=== PATIENT | male | born 1945 | race Hispanic/Latino ===

== ENCOUNTER 2017-12-25 06:05 | Observation (INO) | payer MEDICARE ==
--- NOTE | 2017-12-22 12:25 | Diagnostic Imaging Report ---
EXAMINATION: PA and lateral views of the chest. COMPARISON: None CLINICAL HISTORY: Preoperative study for right knee surgery DISCUSSION: The lungs are well-inflated. No focal airspace consolidation, pleural effusion, or pneumothorax. Tortuous thoracic aorta with otherwise normal cardiomediastinal contour. No overt pulmonary edema. No acute osseous abnormality. IMPRESSION: No acute cardiopulmonary abnormality. Signed by: Dr. Lonnie Hernandez M.D. on 12/22/2017 12:22 PM
[2017-12-22 12:28] LABS: BASOPHILS % 0.7 % (0.0-1.0); EOSINOPHILS # (AUTO) 0.5 (0.0-0.4); EOSINOPHILS % 7.9 % (0.0-6.0); HEMATOCRIT 43.2 % (38.2-49.6); HEMOGLOBIN 13.6 g/dL (14.0-18.0); LYMPHOCYTES # (AUTO) 1.5 (1.0-3.2); LYMPHOCYTES % 25.6 % (18.0-39.1); MEAN CORPUSCULAR HEMOGLOBIN 28.2 pg (28-32); MEAN CORPUSCULAR HGB CONC 31.5 g/dL (31-35); MEAN CORPUSCULAR VOLUME 89.4 fL (81-99); MONOCYTES # (AUTO) 0.4 (0.2-0.8); MONOCYTES % 7.4 % (4.4-11.3); NEUTROPHILS # (AUTO) 3.4 (2.1-6.9); NEUTROPHILS % 58.1 % (38.7-80.0); PLATELET COUNT 158 x10e3/uL (140-360); RED BLOOD COUNT 4.83 x10e6/uL (4.3-5.7); RED CELL DISTRIBUTION WIDTH 13.9 % (11.7-14.4)
[~2017-12-25] VITALS: Ht 170.2 cm; Wt 81.9 kg
[~2017-12-25 06:05] MED LIST: ATORVASTATIN CA20 MG PO; MELOXICAM7.5 MG PO; ROPIVACAINE 246.25 MG, EPINEPHRINE HCL 1:1000 0.5 MG, CLONIDINE HCL 0.08 MG, KETOROLAC ... IV ONE; ULTRAM50 MG PO
--- OUTSIDE RECORDS SUMMARY | 2017-12-25 06:07 | XMS REPORT ---
Author Author [facility] Address Unknown Phone Unavailable Care Team Providers Care Sewer Pipe Sorter Name Role Phone LONNIE ONEAL Unavailable Unavailable Problems This patient has no known problems. Allergies, Adverse Reactions, Alerts This patient has no known allergies or adverse reactions. Medications This patient has no known medications. Results Test Description Test Time Test Comments Text Results Atomic Results Result Comments CHEST 2 VIEWS 2017-12-22 12:19:00 [place] [address] Patient Name: ALFREDO WALTER MR #: [id number] : 1945 Age/Sex: 72/M Req #: [id number] Adm Physician: Ordered by: LONNIE ONEAL MD Report #: [id number] Location: OR Room/Bed: Procedure: [id number] DX/CHEST 2 VIEWS Exam Date: 12/22/17 Exam Time: 1201 REPORT STATUS: Signed EXAMINATION: PA and lateral views of the chest. COMPARISON: None CLINICAL HISTORY: Preoperative study for right knee surgery DISCUSSION: The lungs are well-inflated. No focal airspace consolidation, pleural effusion, or pneumothorax. Tortuous thoracic aorta with otherwise normal cardiomediastinal contour. No overt pulmonary edema. No acute osseous abnormality. IMPRESSION: No acute cardiopulmonary abnormality. Signed by: Dr. Lonnie Brothers M.D. on 12/22/2017 12:22 PM Dictated By: LONNIE BROTHERS MD 21 Transcribed By: PHIL on 12/22/171221 COPY TO: LONNIE ONEAL MD
[2017-12-25] MEDS ORDERED: GABAPENTIN 300 MG CAP ONE (06:40)
[2017-12-25] MEDS ORDERED: CELECOXIB 200 MG CAP ONE (06:40)
[2017-12-25] MEDS ORDERED: DEXAMETHASONE SOD PHOS 10 MG/1 ML VIAL ONE (06:40)
[2017-12-25] MEDS ORDERED: CEFAZOLIN SOD 2 GM/D5W 50ML 50 ML IV ONE (06:41)
[2017-12-25] MEDS ORDERED: TRANEXAMIC ACID 1,000 MG/10 ML ML ONE (07:36)
[2017-12-25] MEDS ORDERED: BACITRACIN 50,000 UNIT VIAL ONE (07:36)
[2017-12-25] MEDS ORDERED: MUPIROCIN 2% OINT 22 GM TUBE ONE (07:36)
[2017-12-25] MEDS: SODIUM CHLORIDE 0.9% 1000ML 1,000 ML IV SCH ×2 (09:58→22:00)
[2017-12-25] MEDS ORDERED: KETOROLAC TROMETHAMINE 30 MG/ML VIAL IV PRN (10:00)
[2017-12-25] MEDS ORDERED: HYDROCODONE/APAP 5MG-325MG TAB PO PRN (10:00)
[2017-12-25] MEDS ORDERED: DIPHENHYDRAMINE HCL INJ 50 MG/ML VIAL IM/IV PRN (10:00)
[2017-12-25] MEDS ORDERED: PROMETHAZINE HCL (IM) 25 MG/ML VIAL IM PRN (10:00)
[2017-12-25] MEDS ORDERED: DOCUSATE SODIUM 100 MG CAP PO PRN (10:00)
[2017-12-25] MEDS ORDERED: ACETAMINOPHEN 650 MG SUPP PR PRN (10:00)
[2017-12-25] MEDS ORDERED: ONDANSETRON HCL INJ 2 MG/ML VIAL IV PRN (10:00)
[2017-12-25] MEDS ORDERED: HYDROCODONE/APAP 7.5MG-325MG 1 EA TAB PO PRN (10:00)
--- NOTE | 2017-12-25 11:17 | Diagnostic Imaging Report ---
PROCEDURE: X-RAY RIGHT KNEE, ONE OR TWO VIEWS COMPARISON: None. INDICATIONS:POST RIGHT KNEE SURGERY FINDINGS: See conclusion. CONCLUSION: Status post total right knee replacement with surrounding soft tissue swelling, air and ashlyn consistent with recent surgery. No acute fractures. Obdulio Jules D.O. Dictated by: Obdulio Jules D.O. on 12/25/2017 at 11:26 Electronically approved by: Obdulio Jules D.O. on 12/25/2017 at 11:26
[2017-12-25] MEDS: ACETAMINOPHEN 1000 MG/100 ML IV SCH ×2 (12:00→18:45)
[2017-12-25] MEDS ORDERED: CEFAZOLIN SOD 1 GM/D5W 50ML 50 ML IV SCH (14:00)
--- NOTE | 2017-12-25 15:52 | Operative Report ---
DATE OF PROCEDURE: December 25, 2017 COMMISSIONER OF OFFICIALS: Melvin Tidwell PA-C The patient was brought to the operating room for induction of anesthesia. Throughout this case, my PA's assistance was necessary for retraction of soft tissue and positioning of the extremity. This allows for efficient and technically successful execution of the operation and is considered medically necessary. PREOPERATIVE DIAGNOSIS: Osteoarthritis, right knee. POSTOPERATIVE DIAGNOSIS: Osteoarthritis, right knee. PROCEDURE: Right total knee arthroplasty. INDICATIONS: The patient is a 72-year-old gentleman who has severe end-stage arthritis of his right knee. He has failed conservative management and would like to proceed with a right total knee replacement. The risks and benefits of the procedure have been discussed. He states he understands and wishes to proceed. DESCRIPTION OF PROCEDURE: The patient was brought to the operating room and placed under general anesthetic. He received prophylactic antibiotics, a regional block, and tranexamic acid in the holding area. His right lower extremity was prepped and draped in a sterile manner. A preoperative timeout was performed. Extremity was exsanguinated and a proximal tourniquet was inflated to 300 mmHg. An anterior approach with a medial parapatellar arthrotomy was performed. Clear synovial fluid was removed from the joint. Aggressive medial soft tissue release was necessary due to the varus deformity. Meniscal remnants and marginal osteophytes were removed. The cruciate ligaments were sacrificed. The knee was very tight and had a near 5 degree flexion contracture prior to surgery. An extramedullary cutting guide was used to resect the proximal tibia. A +2 mm cut was performed due to the limited motion. The tibial baseplate was noted to be a size 7. The central fin punch was impacted. Throughout the case, a Felix and Nephew posterior stabilized Legion system was used. Attention was then directed towards the distal femur. An intramedullary cutting guide was used to resect the distal femur in 6 degrees of valgus and rotation referencing off of a combination of landmarks including [place] line, the epicondylar axis and posterior condyles. The femoral component was noted to be a size number 8. Anterior and posterior cuts were made. The notch cut was made. Trial reductions were performed. An 11 mm posterior stabilized tibial insert provided appropriate soft tissue balancing in flexion and extension. The patella was resurfaced with a 35 mm x 7.5 mm patellar button. The thickness was checked before and after and was right at 24 mm. Patellar tracking was noted to be concentric. The trial implants were then all removed. A 100 mL premixed pericapsular injection was placed around the surrounding soft tissue. The knee was thoroughly irrigated with a shower-tip pulsatile lavage. The components were cemented into place using Palacos cement pre-loaded with antibiotics. Care was taken to remove all extravasated cement. The wound was further irrigated while the cement cured. The arthrotomy was closed with interrupted number 1 Ethibond. The skin was closed with subcuticular Vicryl and ashlyn. A sterile bandage was applied. The patient was extubated and transported to the recovery room in stable condition. Blood loss was minimal. All needle and sponge counts were correct. Job#: [id number]
[2017-12-25] MEDS: CEFAZOLIN SOD 1 GM VIAL IV SCH (16:00)
[2017-12-25] MEDS ORDERED: CEFAZOLIN SOD 1 GM VIAL ONE (16:37)
[2017-12-25] MEDS ORDERED: SODIUM CHLORIDE 0.9% 50ML 50 ML ONE (16:38)
[2017-12-25] MEDS ORDERED: CELECOXIB 100 MG CAP PO SCH (17:00)
[2017-12-25] MEDS ORDERED: LIDOCAINE HCL 2% LOCAL INJ 5 ML SDV VIAL INJ ONE (17:30)
[2017-12-25] MEDS ORDERED: ONDANSETRON HCL INJ 2 MG/ML VIAL ONE (17:30)
[2017-12-25] MEDS ORDERED: SEVOFLURANE INHAL SOLN 250 ML PEN BTL ONE (17:30)
[2017-12-25] MEDS ORDERED: PROPOFOL IV EMULSION 10 MG/ML 20 ML VIAL ONE (17:30)
[2017-12-25] MEDS ORDERED: DEXAMETHASONE SOD PHOS INJ 4 MG/ML VIAL ONE (17:30)
[2017-12-25 18:15] VITALS: BP 119/59
[2017-12-25 18:16] VITALS: BP 119/59
[2017-12-25] MEDS ORDERED: ROPIVACAINE 0.5% 5 MG/ML 30 ML SDV ONE (18:24)
[2017-12-25] MEDS ORDERED: LIDOCAINE 2% /EPINEPHRINE 20 ML SDV INJ ONE (18:24)
[2017-12-25] MEDS: CELECOXIB 200 MG CAP PO SCH (18:45)
[2017-12-25] MEDS: ASPIRIN 325 MG TAB PO SCH (18:45)
[2017-12-25] MEDS ORDERED: MIDAZOLAM HCL 2 MG/2 ML VIAL ONE (18:46)
[2017-12-25 20:00] VITALS: BP_SYST 110; BP_SYST 119; BP_DIAS 59
[2017-12-25] MEDS ORDERED: ZOLPIDEM TARTRATE 5 MG TAB PO PRN (21:00)
[2017-12-26] VITALS: BP 121/57
[2017-12-26 05:52] LABS: HEMATOCRIT 33.6 % (38.2-49.6); HEMOGLOBIN 10.8 g/dL (14.0-18.0)
[2017-12-26] MEDS: ACETAMINOPHEN 1000 MG/100 ML IV SCH ×2 (06:00)
[2017-12-26 06:57] VITALS: BP 104/55
[2017-12-26] MEDS: ASPIRIN 325 MG TAB PO SCH (09:04)
[2017-12-26] MEDS: CEFAZOLIN SOD 1 GM VIAL IV SCH ×2 (09:04)
[2017-12-26] MEDS: CELECOXIB 200 MG CAP PO SCH (09:04)
[2017-12-26 09:31] VITALS: BP 112/58
[2017-12-26] MEDS ORDERED: ACETAMINOPHEN 1000 MG/100 ML IV PRN (10:00)
[2017-12-26] MEDS: SODIUM CHLORIDE 0.9% 1000ML 1,000 ML IV SCH (10:30)
[2017-12-26 12:37] VITALS: BP 111/50
--- NOTE | 2018-02-12 14:30 | Discharge Summary ---
CHIEF COMPLAINT: Right knee pain. HISTORY OF PRESENT ILLNESS: This patient is a 72-year-old male who complains of right knee pain for several years. He states the pain has gotten progressively worse over the last year. He states it is now getting difficult to walk. His x-rays show severe end-stage varus OA. The findings and options were discussed. We explained that at this point conservative management would not likely benefit him. The risks and benefits of a right total knee replacement were explained. The patient states he understands and wishes proceed. HOSPITAL COURSE: The patient underwent a right total knee replacement without complications. He was then transferred to the recovery room and the floor in stable condition. He remained stable through his hospital stay. He progressed nicely with physical therapy. He was able to be discharged home on postop day 1. PRINCIPAL DIAGNOSIS: Osteoarthritis, right knee. PRINCIPAL PROCEDURE: Right total knee arthroplasty. DISCHARGE INSTRUCTIONS: Patient was discharged home on postop day 1. He had home health and physical therapy arranged. He could weightbear as tolerated with his rolling walker. He was instructed to resume his home medications as directed. He was to take aspirin twice a day for thromboprophylaxis. He was instructed to follow up in our office in roughly 10 days. DICTATED BY RUBY BLOCK PA-C STAR ONEAL MD Job#: [id number] [place]
--- NOTE | 2018-03-03 12:10 | Consultation ---
DATE OF CONSULTATION: December 26, 2017 REASON FOR CONSULTATION: Medical management. HISTORY OF PRESENT ILLNESS: Patient is a 72-year-old status post total knee arthroplasty of the right knee who is doing well postoperatively with minimal pain. REVIEW OF SYSTEMS: Denies any chest pain, fever, chills, headaches, shortness of breath, dizziness, nausea, or vomiting. PAST MEDICAL HISTORY: Significant for hyperlipidemia. MEDICATIONS: See MAR. ALLERGIES: NONE. SOCIAL HISTORY: Nondrinker and nonsmoker. FAMILY HISTORY: Noncontributory. PHYSICAL EXAMINATION VITAL SIGNS: Temperature 96.4, pulse 54, blood pressure 121/57, and sats 94%. GENERAL: No apparent distress. LUNGS: Clear to auscultation bilaterally. NECK: Supple. CARDIOVASCULAR: Regular rate and rhythm. ABDOMEN: Good bowel sounds. Soft and nontender. EXTREMITIES: No clubbing or cyanosis. NEUROLOGIC: Nonfocal. ASSESSMENT AND PLAN 1. Right knee pain. Continue physical therapy. 2. Hyperlipidemia. We will continue with his medications at the time of discharge. 3. Anemia. We will check CBC. Please see hospital chart for full details. Job#: [id number] DARIUSZ
== END 2017-12-26 14:17 | disposition home health service (06) ==
LOC: OR 06:05 → PACU V 10:00 → MED/SURG 17:56
PROVIDERS: ADMIT Specialist; ATTEND Specialist
DX: M17.11 Unilateral primary osteoarthritis, right knee (principal); E78.00 Pure hypercholesterolemia, unspecified; E66.01 Morbid (severe) obesity due to excess calories; Z72.0 Tobacco use; D64.9 Anemia, unspecified; Z68.28 Body mass index [BMI] 28.0-28.9, adult
CPT/HCPCS: 27447; 36415 ×2; 71046; 73560; 85014; 85018; 85025; 86850; 86900; 86920; 93005; 97116 ×2; 97161; 97530; C1713; G0378 ×2; G8978; G8979; J0171; J0690 ×2; J1100 ×2; J1885 ×2; J2001 ×2; J2250; J2405; J2795; J7030 ×2

== ENCOUNTER 2019-12-24 07:30 | Observation (INO) | payer MEDICARE, OTHER ==
[2019-12-20 11:45] LABS: BASOPHILS # (AUTO) 0.1 (0.0-0.1); BASOPHILS % 0.7 % (0.0-1.0); EOSINOPHILS # (AUTO) 0.8 (0.0-0.4); EOSINOPHILS % 11.4 % (0.0-6.0); HEMATOCRIT 44.2 % (38.2-49.6); HEMOGLOBIN 13.5 g/dL (14.0-18.0); LYMPHOCYTES # (AUTO) 1.7 (1.0-3.2); LYMPHOCYTES % 25.3 % (18.0-39.1); MEAN CORPUSCULAR HEMOGLOBIN 26.7 pg (28-32); MEAN CORPUSCULAR HGB CONC 30.5 g/dL (31-35); MEAN CORPUSCULAR VOLUME 87.4 fL (81-99); MONOCYTES # (AUTO) 0.6 (0.2-0.8); NEUTROPHILS # (AUTO) 3.6 (2.1-6.9); NEUTROPHILS % 53.5 % (38.7-80.0); PLATELET COUNT 152 x10e3/uL (140-360); RED BLOOD COUNT 5.06 x10e6/uL (4.3-5.7); RED CELL DISTRIBUTION WIDTH 15.8 % (11.7-14.4)
--- NOTE | 2019-12-20 12:04 | Diagnostic Imaging Report ---
EXAMINATION: CHEST 2 VIEWS INDICATION: ^[id number] ^1140 ^PRE OP COMPARISON: 12/22/2017 FINDINGS: PA and lateral views TUBES and LINES: None. LUNGS: Lungs are well inflated. Lungs are clear. There is no evidence of pneumonia or pulmonary edema. PLEURA: No pleural effusion or pneumothorax. HEART AND MEDIASTINUM: The cardiomediastinal silhouette is at the upper limit of normal in size. The thoracic aorta is mildly tortuous. BONES AND SOFT TISSUES: No acute osseous lesion. Soft tissues are unremarkable. UPPER ABDOMEN: No free air under the diaphragm. IMPRESSION: No acute thoracic radiographic abnormality. Signed by: Carmine Wynn MD on 12/20/2019 12:01 PM
[~2019-12-24] VITALS: Ht 170.2 cm; Wt 117.5 kg
[~2019-12-24 07:30] MED LIST changes: -ROPIVACAINE 246.25 MG, EPINEPHRINE HCL 1:1000 0.5 MG, CLONIDINE HCL 0.08 MG, KETOROLAC ... IV ONE; +SODIUM CHLORIDE 0.9% 500ML 500 ML ONE; +TRANEXAMIC ACID 1,000 MG/10 ML ML ONE; +VANCOMYCIN HCL 1,000 MG ONE
[2019-12-24] MEDS ORDERED: ROPIVACAINE 246.25 MG, EPINEPHRINE HCL 1:1000 1ML 0.5 MG, CLONIDINE HCL 0.08 MG, KETORO... INJ ONE ×5 (08:00)
[2019-12-24] MEDS ORDERED: GABAPENTIN 300 MG CAP ONE (08:01)
[2019-12-24] MEDS ORDERED: CEFAZOLIN SOD 1 GM/NS 50ML 100 ML IV ONE (08:01)
[2019-12-24] MEDS ORDERED: DEXAMETHASONE SOD PHOS 10 MG/1 ML VIAL ONE (08:01)
[2019-12-24] MEDS ORDERED: CELECOXIB 200 MG CAP ONE (08:01)
[2019-12-24] MEDS ORDERED: VANCOMYCIN HCL 500 MG ONE (09:35)
[2019-12-24] MEDS ORDERED: ONDANSETRON HCL INJ 2MG/ML 2ML 2 MG/ML VIAL IV PRN (10:30)
[2019-12-24] MEDS ORDERED: DOCUSATE SODIUM 100 MG CAP PO PRN (10:30)
[2019-12-24] MEDS ORDERED: ZOLPIDEM TARTRATE 5 MG TAB PO PRN (10:30)
[2019-12-24] MEDS ORDERED: KETOROLAC TROMETHAMINE 30 MG/ML VIAL IV PRN (10:30)
[2019-12-24] MEDS ORDERED: HYDROCODONE/APAP 7.5MG-325MG 1 EA TAB PO PRN (10:30)
[2019-12-24] MEDS ORDERED: ACETAMINOPHEN 650 MG SUPP PR PRN (10:30)
[2019-12-24] MEDS ORDERED: DIPHENHYDRAMINE HCL INJ 50 MG/ML VIAL IV PRN (10:30)
--- NOTE | 2019-12-24 11:18 | Diagnostic Imaging Report ---
TECHNIQUE: 2 views of left knee HISTORY: ^post op ^[id number] ^1045 ^n. COMPARISON: None. IMPRESSION: Status post left knee orthopedic hardware placement. No evidence of loosening or failure. Postoperative soft tissue changes. Signed by: Luis Godoy MD on 12/24/2019 11:14 AM
--- OUTSIDE RECORDS SUMMARY | 2019-12-24 11:40 | XMS REPORT | Continuity of Care Document ---
Author Author [facility] t Organization [facility] Address [address] [place] [id number] Phone Unavailable Care Team Providers Care Accounts Officer Name Role Phone STAR ONEAL Attphys Unavailable MAURA MCKEON Admphys Unavailable Payers Payer Name Policy Type Policy Number Effective Date Expiration Date S ource Problems This patient has no known problems. Allergies, Adverse Reactions, Alerts Allergy Name Allergy Type Status Severity Reaction(s) Onset Date Inacti ve Date Treating Clinician Comments Source No Known Allergies DA Active U 2016-05-24 00:00:00 [facility] Medications This patient has no known medications. Procedures This patient has no known procedures. Results Test Description Test Time Test Comments Results Result Comments Source KNEE LEFT 1-2 VIEWS 2019-12-24 11:13:00 [facility] 1945 Sex: M [place] [address] Patient Name: ALFREDO WALTER MR #: [id number] : 1945 Age/Sex: 74/M Req #: [id number] [facility] Physician: Ordered by: STAR ONEAL MD Report #: [id number] Location: OR Room/Bed: Procedure: [id number] DX/KNEE LEFT 1-2 VIEWS Exam Date: 12/24/19 Exam Time: 1045 REPORT STATUS: Signed TECHNIQUE: 2 views of left knee HISTORY: post op [id number] n. COMPARISON: None. IMPRESSION: Status post left knee orthopedic hardware placement. No evidence of loosening or failure. Postoperative soft tissue changes. Signed by: Luis Godoy MD on 12/24/2019 11:14 AM Dictated By: LUIS GODOY DO 13 Transcribed By: PHIL on 12/24/191113 COPY TO: STAR ONEAL MD CHEST 2 VIEWS 2019-12-20 11:57:[address] [facility] : 1945 Sex: M [place] [address] Patient Name: ALFREDO WALTER MR #: [id number] : 1945 Age/Sex: 74/M Req #: [id number] Adm Physician: Ordered by: STAR ONEAL MD Report #: [id number] Location: OR Room/Bed: Procedure: [id number] DX/CHEST 2 VIEWS Exam Date: 12/20/19 Exam Time: 1140 REPORT STATUS: Signed EXAMINATION: CHEST 2 VIEWS INDICATION: [id number] PRE OP COMPARISON: 12/22/2017 FINDINGS: PA and lateral views TUBES and LINES: None. LUNGS: Lungs are well inflated. Lungs are clear. There is no evidence of pneumonia or pulmonary edema. PLEURA: No pleural effusion or pneumothorax. HEART AND MEDIASTINUM: The cardiomediastinal silhouette is at the upper limit of normal in size. The thoracic aorta is mildly tortuous. BONES AND SOFT TISSUES: No acute osseous lesion. Soft tissues are unremarkable. UPPER ABDOMEN: No free air under the diaphragm. IMPRESSION: No acute tho racic radiographic abnormality. Signed by: Emmanuel Berrios MD on 12/20/2019 12:01 PM Dictated By: EMMANUEL BERRIOS MD 120 Transcribed By: PHIL on 12/20/19 1201 COPY TO: STAR ONEAL MD KNEE RIGHT 1-2 VIEWS 2017-12-25 11:26:00 [place] [address] Patient Name: ALFREDO WALTER MR #: [id number] : 1945 Age/Sex: 72/M Req #: [id number] Adm Physician: Ordered by: STAR ONEAL MD Report #: [id number] Location: OR Room/Bed: Procedure: [id number] DX/KNEE RIGHT 1-2 VIEWS Exam Date: 12/25/17 Exam Time: 1018 REPORT STATUS: Signed PROCEDURE: X-RAY RIGHT KNEE, ONE OR TWO VIEWS COMPARISON: None. INDICATIONS: POST RIGHT KNEE SURGERY FINDINGS: See conclusion. CONCLUSION: Status post total right knee replacement with surrounding soft tissue swelling, air and ashlyn consistent with recent surgery. No acute fractures. Mariam Jules D.O. Dictated by: Mariam Jules D.O. on 12/25/2017 at 11:26 Electronically approved by: Mariam Jules D.O. on 12/25/2017 at 11:26 Dictated By: MARIAM JULES DO 1126 Transcribed By: DONIS on 12/25/17 1126 COPY TO: STAR ONEAL MD CHEST 2 VIEWS 2017-12-22 12:19:00 [place] [address] Patient Name: ALFREDO WALTER MR #: [id number] : 1945 Age/Sex: 72/M Req #: [id number] Adm Physician: Ordered by: STAR ONEAL MD Report #: [id number] Location: OR Room/Bed: Procedure: [id number] DX/CHEST 2 VIEWS Exam Date: 12/22/17 Exam [...] No acute cardiopulmonary abnormality. Signed by: Dr. Star Brothers M.D. on 12/22/2017 12:22 PM Dictated By: STAR BROTHERS MD 1222 Transcribed By: PHIL on 12/22/17 1222 COPY TO: STAR ONEAL MD
[2019-12-24 11:54] VITALS: BP 109/64
--- NOTE | 2019-12-24 11:54 | NUR ---
PHONE REPORT RECEIVED FROM PACU NURSE. PATIENT ARRIVED TO FLOOR VIA STRETCHER. PATIENT IS ALERT AND ABLE TO MAKE NEEDS KNOWN. PATIENT ASKED FOR ICE/WATER WHICH WAS PROVIDED. PATIENT WAS EDUCATED ON FALL RISK PRECAUTIONS AND VERBALIZED UNDERSTANDING. CALL LIGHT AND BELONGINGS PLACED NEARBY. WILL CONTINUE TO MONITOR.
[2019-12-24 12:00] VITALS: BP 109/64
[2019-12-24] MEDS ORDERED: MIDAZOLAM HCL 2 MG/2 ML VIAL ONE (12:23)
[2019-12-24] MEDS ORDERED: FENTANYL CITRATE/PF 100MCG/2 ML INJ ONE (12:23)
[2019-12-24] MEDS ORDERED: KETAMINE HCL INJ 50 MG/ML 10 ML VIAL ONE (12:23)
--- NOTE | 2019-12-24 12:23 | Operative Report ---
DATE OF PROCEDURE: 12/24/2019 SURGEON: Lonnie Galindo MD PIANO TECHNICIAN: Melvin Tidwell, certified PA. PREOPERATIVE DIAGNOSIS: Osteoarthritis, left knee. POSTOPERATIVE DIAGNOSIS: Osteoarthritis, left knee. PROCEDURE: Left total knee arthroplasty. INDICATIONS: The patient is a 74-year-old gentleman, who has severe arthritis of his left knee. He has failed conservative management and would like to proceed with a left total knee replacement. He is status post right knee replacement and is familiar with the procedure. All of the risks and benefits have been explained. The patient states he understands and wishes to proceed. PROCEDURE IN DETAIL: The patient was brought to the operating room and placed under general anesthetic. He received prophylactic antibiotics, a regional block, and tranexamic acid in the holding area. His left lower extremity was prepped and draped in a sterile manner. A preoperative time-out was performed. A proximal tourniquet was inflated to 300 mmHg. An anterior incision was made with a medial parapatellar arthrotomy. Preoperatively, the patient had a 5-degree flexion contracture and quite severe varus deformity. A slightly more extensile exposure was necessary. An aggressive medial release was necessary. Large medial osteophytes were removed. The knee was brought up into flexion with the patella everted. Meniscal remnants and the cruciate ligaments were removed. Several efforts were made to lever the tibia forward. The knee was too tight. We decided to do the femur first. An intramedullary cutting guide was used to resect the distal femur in 6 degrees of valgus and rotation referencing off a combination of landmarks including Whitesides line, the epicondylar axis, and the posterior condyles. The femoral component was a size 8. The anterior and posterior cuts were made. The trial implant was seated and the notch cut was made. Attention was redirected towards the proximal tibia. This time, we could manipulate the tibia more forward to gain better exposure. A portion of the posterior hamstring insertion on the posterior medial aspect of the tibia was released. An extramedullary cutting guide was used to resect the proximal tibia. At least a 2 mm cut was made due to the extensive medial wear. The tibial base plate was a size 7. The central fin punch was impacted. A trial reduction was performed. A 9 mm ultracongruent tibial insert provided appropriate soft tissue balancing in full extension and 90 degrees of flexion. The patella was resurfaced with a 35 mm x 9 mm patellar button. The thickness was checked before and after resurfacing, and was right around 26 mm. Patellar tracking was concentric. The trial implants were removed. A 100 mL premixed pericapsular SKYLAR injection was placed into the surrounding soft tissue. The knee was thoroughly irrigated with a shower tip pulsatile lavage. A single mix of high viscosity Biomet cement was used to cement the components into place. This cement was preloaded with antibiotics. Care was taken to remove all extravasated cement. The wound was further irrigated with the pulsatile lavage while the cement completely cured. The arthrotomy was then closed with interrupted #1 Ethibond. The knee was put through flexion and extension to ensure a secure closure. The skin was closed with subcuticular Vicryl and ashlyn. A sterile Aquacel bandage was applied. An Mulugeta wrap was applied. The patient was extubated and transported to the recovery room in stable condition. Blood loss was minimal. All needle and sponge counts were correct. Lonnie Galindo MD DR/JOSE ALBERTO /[id number] [place]
[2019-12-24] MEDS ORDERED: ROPIVACAINE 0.5% 5 MG/ML 30 ML SDV ONE (12:36)
[2019-12-24] MEDS ORDERED: LIDOCAINE 2%/ EPINEPHRINE 20ML MDV ONE (12:36)
[2019-12-24] MEDS: SODIUM CHLORIDE 0.9% 1000ML 1,000 ML IV SCH ×2 (13:09→20:30)
--- NOTE | 2019-12-24 14:36 | NUR ---
DR RIDLEY OFFICE PREARRANGED FOLLOWING DISCHARGE PLAN OF:HOME [address] [facility], [facility] WITH [facility] CONFIRMED WITH [employer] [phone] DME 3 IN ONE COMMODE. AND CPM. PROVIDED BY THERAPY [employer] SAM [phone] SERINA SIGNED AND ON CHART COPY LEFT WITH PATIENT GAVE CARD FOR QUESTIONS AND OR CONCERNS.
[2019-12-24] MEDS: CEFAZOLIN SOD 1 GM/NS 50ML 50 ML IV SCH ×2 (14:46→21:43)
--- NOTE | 2019-12-24 14:58 | NUR ---
DR. MCKEON MADE AWARE OF CONSULT FOR POST OP MEDICAL MGT AFTER LEFT TKA
[2019-12-24 15:41] VITALS: BP 127/70
[2019-12-24] MEDS: ASPIRIN 325 MG TAB PO SCH (17:18)
[2019-12-24] MEDS: CELECOXIB 100 MG CAP PO SCH (17:18)
--- NOTE | 2019-12-24 18:50 | NUR ---
SBAR BEDSIDE SHIFT REPORT GIVEN TO PM SHIFT RN. PATIENT IS STABLE.
[2019-12-24] MEDS ORDERED: ONDANSETRON HCL INJ 2MG/ML 2ML 2 MG/ML VIAL ONE (19:44)
[2019-12-24] MEDS ORDERED: PROPOFOL IV EMULSION 10 MG/ML 20 ML VIAL ONE (19:44)
[2019-12-24] MEDS ORDERED: DESFLURANE 240 ML BTL INH ONE (19:44)
[2019-12-24] MEDS ORDERED: LIDOCAINE HCL 2% LOCAL INJ 5 ML SDV VIAL INJ ONE (19:44)
--- NOTE | 2019-12-24 19:45 | NUR ---
Placed on CPM to left knee at 45 degrees, tolerating. Increased to 55 degrees, tolerating. Will continue to monitor.
[2019-12-24 20:00] VITALS: BP 113/63
[2019-12-24 20:34] VITALS: BP 113/63
[2019-12-24] MEDS: HYDROCODONE/APAP 5MG-325MG TAB PO PRN (21:43)
--- NOTE | 2019-12-24 21:45 | NUR ---
Removed from CPM, tolerated well.
[2019-12-25 00:09] VITALS: BP 129/73
[2019-12-25] MEDS: HYDROCODONE/APAP 5MG-325MG TAB PO PRN ×2 (03:15→07:43)
--- NOTE | 2019-12-25 05:16 | Consultation ---
DATE OF CONSULTATION: REASON FOR CONSULTATION: Postop medical management. HISTORY OF PRESENT ILLNESS: The patient is a 74-year-old gentleman status post right total knee arthroplasty. He is doing well postoperatively and has minimal pain in the left knee. Denies any fevers, chills, nausea, vomiting, headache, shortness of breath, or chest pain. PAST MEDICAL HISTORY: Significant for hyperlipidemia and osteoarthritis. MEDICATIONS: See MAR. SOCIAL HISTORY: Nonsmoker and nondrinker. FAMILY HISTORY: Hypertension. ALLERGIES: NONE. PHYSICAL EXAMINATION: VITAL SIGNS: Temperature 97.7, pulse 60, blood pressure 129/73, and sats 97% on room air. GENERAL: He is no apparent distress, lying in bed. NECK: Supple. CARDIOVASCULAR: Regular rate and rhythm. LUNGS: Clear to auscultation bilaterally. ABDOMEN: Good bowel sounds. Soft and nontender. EXTREMITIES: No clubbing or cyanosis. NEUROLOGIC: Nonfocal. ASSESSMENT AND PLAN: 1. Left knee pain, we will continue postoperative care. 2. Anemia, check a CBC. 3. Hyperlipidemia. Continue with his cholesterol medicine. Please see hospital chart for full details. MD MICHAEL Velasquez/JOSE ALBERTO /[id number]
[2019-12-25 05:21] VITALS: BP 99/52
[2019-12-25] MEDS: CEFAZOLIN SOD 1 GM/NS 50ML 50 ML IV SCH (05:30)
--- NOTE | 2019-12-25 05:35 | NUR ---
CPM applied to left knee, tolerating 55 degrees. Increased to 65 degrees. Will continue to monitor.
--- NOTE | 2019-12-25 05:50 | NUR ---
CPM increased to 70 degrees, tolerating. Will continue to monitor.
[2019-12-25] MEDS: SODIUM CHLORIDE 0.9% 1000ML 1,000 ML IV SCH (05:56)
[2019-12-25 06:32] LABS: HEMATOCRIT 36.4 % (38.2-49.6); HEMOGLOBIN 11.3 g/dL (14.0-18.0)
--- NOTE | 2019-12-25 07:13 | NUR ---
Bedside report and walking rounds completed with oncoming nurse. Patient in bed on CPM with call light within reach. No issues or concerns noted.
[2019-12-25] MEDS: CELECOXIB 100 MG CAP PO SCH (07:43)
[2019-12-25] MEDS: ASPIRIN 325 MG TAB PO SCH (07:43)
[2019-12-25 08:15] VITALS: BP 104/57
[2019-12-25 09:00] VITALS: BP 104/57
[2019-12-25] MEDS ORDERED: ONDANSETRON HCL 4 MG ORAL DISINTEGRATING TAB PO PRN (09:30)
--- NOTE | 2019-12-25 10:06 | NUR ---
PATIENT DISCHARGED HOME VIA PRIVATE VEHICLE. PERIPHERAL IV WAS DISCONTINUED; CATHETER TIP INTACT WITHOUT RESISTANCE. DRY DRESSING APPLIED. PATIENT RECEIVED DISCHARGE PAPERWORK AND EDUCATION MATERIAL. PATIENT VERBALIZED UNDERSTANDING.
[2019-12-25] MEDS ORDERED: ACETAMINOPHEN 1000 MG/100 ML IV PRN (10:30)
[2019-12-25] MEDS ORDERED: ATORVASTATIN 20 MG TAB PO SCH (21:00)
== END 2019-12-25 10:06 | disposition home or self-care (01) ==
LOC: OR 07:30 → PACU V 10:25 → MED/SURG 11:54
PROVIDERS: ADMIT Specialist; ATTEND Specialist
DX: M17.0 Bilateral primary osteoarthritis of knee (principal); Z11.59 Encounter for screening for other viral diseases; E78.00 Pure hypercholesterolemia, unspecified; Z01.818 Encounter for other preprocedural examination
CPT/HCPCS: 27447; 36415 ×2; 71046; 73560; 85014; 85018; 85025; 86850; 86900; 86920; 97110; 97116 ×2; 97161; 97530; C1713 ×6; C1776; G0378 ×2; J0171; J0690 ×2; J1100; J1885; J2001 ×2; J2250; J2405; J2704; J2795; J3010; J3370; J7030; J7040; U0002